=== PATIENT | female | born 1990 | race Caucasian/White ===

== ENCOUNTER 2022-08-24 22:53 | Emergency (ER) | payer BC, SELFPAY ==
[2022-08-24 22:57] VITALS: BP 126/87; PULSE 117; TEMP 36.2; O2SAT 100; BMI 26.6
--- NOTE | 2022-08-24 23:21 | ED.NURSE ---
Eye exam attempted, pt normally wears glasses. Pt did not have glasses here and was unable to read any of the eye chart with either eye. Pt at eyewash station for approx 10 mins, rinsing right eye.
--- NOTE | 2022-08-24 23:59 | ED_ITS ---
HPI - Eye Problem General Chief complaint: Eye Problems Stated complaint: Right Eye Pain Time Seen by Provider: 08/24/22 23:17 History of Present Illness HPI Narrative: 32-year-old woman here with significant other with complaint of right eye pain following mistaken placement of show improved directly in her eye. By the time I am seeing her has already been at the eye wash station as well. Just feels like there is sand or grit in there and worse with any eye movement. Poison Control was contacted. They also show some yellow grew that had come out of the eye. Occurred this evening. Sounds as though anxiety flared around this event as . Says she was unable to sleep and woke ?screaming in pain? Related Data Home Medications Medication Instructions Recorded Confirmed fluoxetine .ROUTE 08/24/22 hydroxyzine HCl 50 mg tablet 50 mg PO BID 08/24/22 08/24/22 Allergies Allergy/AdvReac Type Severity Reaction Status Date / Time metoclopramide [From Reglan] Allergy Unknown Verified 08/24/22 23:01 prochlorperazine Allergy Unknown Verified 08/24/22 23:01 [From Compazine] Review of Systems Status of ROS: Reports: 6 or more systems reviewed and unremarkable except as noted in History and below PFSH PFS Social History Smoking Status: Former smoker Do you use any of these nicotine containing products: None Second hand tobacco smoke exposure: No How often do you have a drink containing alcohol: never How often do you have six or more drinks on one occasion: Never AUDIT-C Alcohol total score: 0 Non-prescribed substance use: denies use Exam Narrative: Exam Narrative: Conjunctival injection. Little anxious. Wincing with her right eye Mild rhinorrhea Breathing easily. No evidence of trauma to her face. Sclera are injected but especially the right with broad scleral injection Lacrimating Magnified exam of the eye does not reveal any defect. No foreign body appreciated Fluorescein dye showing uptake broadly over the inferior medial sclera Const: Vital Signs, click to edit/add: Vital Signs - 24 hr 08/24/22 22:57 Temperature 97.2 F L Pulse Rate [Left P ulse Oximeter] 117 H Blood Pressure [Ri ght Upper Arm] 126/87 Pulse Oximetry 100 Oxygen Delivery Me thod Room Air Documenting provider has reviewed patient's vital signs: yes Course Course Hospital Course: As above. I did recommend generic eye ointment as treatment but only available here is erythromycin in ointment form. Was anticipating some form of antibiotic apparently Vital Signs Vital signs: Initial Vital Signs Temperature 97.2 F L 08/24/22 22:57 Temperature Source Temporal Artery Scan 08/24/22 22:57 Pulse Rate 117 H 08/24/22 22:57 Blood Pressure 126/87 08/24/22 22:57 Blood Pressure Mean 100 08/24/22 22:57 Blood Pressure Position Sitting 08/24/22 22:57 Pulse Oximetry 100 08/24/22 22:57 Oxygen Delivery Method 08/24/22 22:57 Vital Signs Temperature 97.2 F L 08/24/22 22:57 Pulse Rate 117 H 08/24/22 22:57 Blood Pressure 126/87 08/24/22 22:57 Pulse Oximetry 100 08/24/22 22:57 Oxygen Delivery Method 08/24/22 22:57 Temperature 97.2 F L 08/24/22 22:57 Pulse Rate 117 H 08/24/22 22:57 Blood Pressure 126/87 08/24/22 22:57 Pulse Oximetry 100 08/24/22 22:57 Oxygen Delivery Method 08/24/22 22:57 Discharge Plan Discharge Clinical Impression: Abrasion of sclera of right eye, Acute chemical conjunctivitis, Anxiety Patient Disposition: Home w/ Parent or Adult Condition: Improved Additional Instructions: Apply this erythromycin ophthalmic ointment as prescribed. As I said, I think more important than the antibiotic is the actual lubrication provided by an ointment formulated for the eye. You can get generic eye ointment [id number] and apply as needed. Be seen for marked increase in pain that is persistent, swelling/redness/heat around the eye, copious purulent drainage. Montgomery from [facility]. Can take up to 800 mg of ibuprofen per dose or up to 1000 mg of acetaminophen per dose. Keep in mind that each tablet of Montgomery as 325 mg of acetaminophen in it. Prescriptions: No Action fluoxetine .ROUTE hydroxyzine HCl 50 mg tablet 50 mg PO BID Stand Alone Forms: [facility] Info Instructions
== END 2022-08-25 00:15 | disposition home or self-care (01) ==
LOC: ED 08-25 00:07
PROVIDERS: Emergency Provider Family Medicine
DX: S05.01XA Injury of conjunctiva and corneal abrasion without foreign body, right eye, initial encounter (principal); H10.211 Acute toxic conjunctivitis, right eye; F41.9 Anxiety disorder, unspecified; X58.XXXA Exposure to other specified factors, initial encounter; Y93.9 Activity, unspecified; Y92.9 Unspecified place or not applicable; Y99.9 Unspecified external cause status
CPT/HCPCS: 99283; 99284; A9270